=== PATIENT | male | born 1935 | race American Indian/Alaskan Native ===

== ENCOUNTER 2020-10-28 10:49 | Outpatient (CLI) | payer MEDICARE ==
--- NOTE | 2020-10-28 11:51 | XRay Report ---
CHEST 2 VIEWS INDICATION: SUSPECTED EXPOSURE TO MOLD. COMPARISON: None FINDINGS: SUPPORT DEVICES: None. HEART: Within normal limits. LUNGS/PLEURA: No acute air space or interstitial disease. No pneumothorax. ADDITIONAL FINDINGS: None. IMPRESSION: 1. No acute findings. Signer Name: Shaun Carbajal MD Signed: 10/28/2020 11:47 AM Workstation Name: [id number]
== END 2020-10-28 10:50 | disposition home or self-care (01) ==
LOC: XRAY 10:49
PROVIDERS: ATTEND Internal Medicine
DX: Z77.120 Contact with and (suspected) exposure to mold (toxic) (principal)
CPT/HCPCS: 71046